=== PATIENT | female | born 1970 | race African-American/Black ===

== ENCOUNTER 2022-02-12 07:58 | Emergency (ER) | payer OTHER ==
[~2022-02-12 07:58] MED LIST: ROBAXIN750 MG PO
[2022-02-12 08:23] LABS: BASOPHIL 0.5 % (0-2); EOSINOPHIL 6.7 % (0-5); HCT 38.1 % (37.0-47.0); HGB 12.7 g/dl (12.5-16.0); LYMPHOCYTE 37.6 % (15-48); MCH 30.3 pg (25.0-31.0); MCHC 33.3 g/dL (32.0-36.0); MCV 90.9 fL (78.0-100.0); MONOCYTE 6.3 % (0-12); NEUTROPHIL 48.6 % (41-80); NRBC 0; PLT 312 K/uL (150-400); RBC 4.19 M/uL (4.20-5.40); RDW 11.6 % (11.5-14.0); WBC 9.8 K/uL (4.0-10.5)
[2022-02-12 08:36] LABS: PROTHROMBIN TIME 12.9 SECONDS (11.9-13.9); PTT 26.4 SECONDS (24.9-34.6)
[2022-02-12 10:02] LABS: CORONAVIRUS 2019 SARS-COV-2 NEGATIVE (NEGATIVE); INFLUENZA A NAA NEGATIVE (NEGATIVE)
[2022-02-12 10:20] LABS: ALBUMIN 3.8 g/dL (3.4-5.0); BILIRUBIN - TOTAL 0.7 mg/dL (0.2-1.0); BUN/CREAT RATIO (CALC) 14.7 RATIO; CREATININE 0.95 mg/dL (0.51-0.95); GLOBULIN (CALCULATION) 3.8 g/dL; POTASSIUM 3.8 mmol/L (3.5-5.1); TOTAL PROTEIN 7.6 g/dL (6.4-8.2)
[2022-02-12] MEDS ORDERED: OMEPRAZOLE40 MG PO (12:53)
[2022-02-12] MEDS ORDERED: NORCO 5-325 TA1 EACH PO (12:53)
== END 2022-02-12 13:25 | disposition home or self-care (01) ==
LOC: FER 07:58
PROVIDERS: Internal Medicine
DX: R07.89 Other chest pain (principal); I10 Essential (primary) hypertension; Z20.822 Contact with and (suspected) exposure to COVID-19
CPT/HCPCS: 36415; 71045; 71275; 80053; 84484; 85025; 85610; 85730; 93005; C9113; J2405; J3475; Q9967; U0002